=== PATIENT | female | born 1960 | race Caucasian/White ===

== ENCOUNTER 2021-05-30 15:29 | Emergency (ER) | payer BC, SELFPAY ==
[2021-05-30] VITALS (7 sets, daily range): BP systolic 109–178; BP diastolic 67–90; PULSE 58–78; RESP 16–19; TEMP 36.4–36.6; O2SAT 97–100
--- NOTE | ~2021-05-30 | XR_ITS ---
XR chest 2V DATE: 05/30/2021 21:26 INDICATION: Bilateral leg and feet swelling for 3 weeks. History of hypertension. TECHNIQUE: PA and lateral views COMPARISON: None FINDINGS: Borderline heart size. No hilar or mediastinal enlargement. No pulmonary infiltrate or consolidation, pleural effusion or pulmonary vascular congestion or pneumo thorax. Mild levoscoliosis of the thoracolumbar spine. Diffuse osteopenia. IMPRESSION: Borderline heart size; no active pulmonary disease Reviewed, dictated and finalized at location A.
--- NOTE | 2021-05-30 15:39 | ECG_ITS ---
Measurements Intervals [place] Rate: 76 P: 12 AR: 148 QRS: -56 QRSD: 99 T: 82 QT: 399 QTc: 450 Interpretive Statements SINUS RHYTHM LOW QRS VOLTAGE IN PRECORDIAL LEADS LEFT ANTERIOR FASCICULAR BLOCK BORDERLINE ST-T WAVE ABNORMALITY- HIGH LATERAL LEADS ABNORMAL ECG Electronically Signed On 05-30-2021 19:55:25 CDT by Perez Enciso D.O.
[2021-05-30 16:02] LABS: Basophils Absolute Auto 0.1 K/mm3 (0.0-0.1); Basophils Percent Auto 0.9 % (0.2-1.2); Eosinophils Absolute Auto 0.1 K/mm3 (0-0.3); Eosinophils Percent Auto 1.2 % (0-4.4); Hematocrit 40.1 % (37.0-47.0); Hemoglobin 13.2 g/dL (12.0-15.0); Immature Granulocyte Absolute 0.03 K/mm3 (0.00-0.031); Immature Granulocyte Percent A 0.5 % (0-0.5); Lymphocytes Absolute Auto 2.42 K/mm3 (0.9-3.2); Lymphocytes Percent Auto 41.8 % (18.3-44.2); Mean Corpuscular HGB Conc 32.9 g/dl (32-36); Mean Corpuscular Hemoglobin 31.4 pg (26-34); Mean Corpuscular Volume 95.5 fl (80-100); Mean Platelet Volume 10.6 fl (7.4-10.4); Monocytes Absolute Auto 0.3 K/mm3 (0.1-0.6); Monocytes Percent Auto 4.5 % (2.6-8.5); Neutrophils Percent Auto 51.1 % (45.5-73.1); Platelet Count Result 199 k/mm3 (150-375); Red Cell Distribution Width 14.8 % (11.5-14.5); White Blood Count 5.8 K/mm3 (4.5-10.0)
[2021-05-30 16:27] LABS: Alanine Aminotransferase 40 U/L (4-35); Albumin Level 4.3 g/dL (3.5-5.1); Alkaline Phosphatase 50 U/L (38-126); Anion Gap 8 mmol/L (8-16); Aspartate Amino Transferase 77 U/L (14-36); Bilirubin,Total 0.5 mg/dL (0.2-1.3); Blood Urea Nitrogen 15 mg/dL (7-17); Calcium 9.3 mg/dL (8.4-10.2); Carbon Dioxide 24 mmol/L (22-30); Chloride 105 mmol/L (98-107); Estimated CRCL calculation 59 ml/min; Estimated Glomerular Filt Rate 56; Glucose 155 mg/dL (65-110); Potassium 3.8 mmol/L (3.4-5.0); Sodium 137 mmol/L (137-145)
[2021-05-30 16:35] LABS: NT Pro B Type Natriuretic Pept 27 pg/mL (5-100)
[2021-05-30 20:59] LABS: Add Urine Microscopic? NO; Appearance Urine Clear (Clear); Bilirubin Urine Negative (Negative); Blood Urine Negative (Negative); Color Urine Yellow (Yellow); Glucose Urine UA Negative (Negative); Ketones Urine Negative (Negative); Leukocyte Esterase Ur Negative LEU/UL (Negative); Nitrate Urine Negative (Negative); Protein Urine Negative (Negative); Specific Grav Ur 1.019 (1.001-1.035); Urobilinogen Urine Negative mg/dL (<2.0)
--- NOTE | 2021-05-30 21:59 | ED.GENADULT ---
HPI - General Adult General Chief complaint: Unspecified Stated complaint: leg swelling, CHF? Time Seen by Provider: 05/30/21 20:24 Source: patient and RN notes reviewed Mode of arrival: ambulatory Limitations: no limitations History of Present Illness HPI narrative: This is a 60 year old female with history of hypertension, hypothyroidism who presents for evaluation of swelling. PAtient reports both her legs have been swollen for 2 week. She reports her swelling is constant. She also reports her hands are swollen and painful in the morning. She has been on lasix with leg swelling in the past but she ran out of her lasix 1 month ago. She reports lasix helped with her swelling. She denies history of CHF. She denies chest pain, orthopnea, shortness of breath , leg pain. She reports history of hypothyroid but her doctor has checked that and made adjustment. Related Data Allergies Allergy/AdvReac Type Severity Reaction Status Date / Time No Known Allergies Allergy Verified 05/30/21 22:08 Review of Systems Review of Systems: All systems reviewed & are unremarkable except as noted in HPI and below PMFSH Past Medical History Medical History (Updated 05/31/21 @ 00:00 by Latonia Paul) Hypertension Hypothyroid Surgical History Surgical History (Updated 05/30/21 @ 22:04 by Roula Sharp MD) H/O thyroidectomy Social History Social History (Updated 05/30/21 @ 22:04 by Roula Sharp MD) Smoking status: Never smoker Exam Narrative: GENERAL: Well-appearing, well-nourished, and in no acute distress. HEAD: Normocephalic, atraumatic EYES: PERRLA and EOMI, conjunctiva clear without discharge THROAT:Mucous membranes moist, Oropharynx normal without erythema, exudate, peritonsillar swelling or fluctuance NECK: Supple, without lymphadenopathy or mass RESPIRATORY: No respiratory distress, Airway patent, Respirations non-labored, Clear to auscultation without rales, rhonchi or wheeze HEART: Regular rate and rhythm. No murmur heard. Normal peripheral pulses. ABDOMEN: Soft, nontender, nondistended, normal active bowel sounds. No masses. No rebound or guarding, No organomegaly. EXTREMITIES: normal strength with full range of motion.no calf tenderness, bilateral ankle swelling, nonpitting SKIN: Warm, dry, normal color without rash NEURO: Alert and oriented x3. CN 2-12 grossly intact. No focal deficits. PSYCH: Normal mood and affect. Course Reevaluation(s) Reevaluation #1: I discussed with patient that labs are unremarkable. THis is unlikely to be DVT. Likely related to obesity and venous insufficiency. She will follow up with PCP . I will place on some lasix. Date: 05/30/21 Time: 22:04 Vital Signs Vital signs: Vital Signs Temperature 97.6 F 05/30/21 15:36 Pulse Rate 78 05/30/21 15:36 Respiratory Rate 16 05/30/21 15:36 Blood Pressure 146/86 H 05/30/21 15:36 Pulse Oximetry 100 05/30/21 15:36 Temperature 98 F 05/30/21 20:02 Pulse Rate 60 05/30/21 23:20 Respiratory Rate 19 05/30/21 23:20 Blood Pressure 149/75 H 05/30/21 23:20 Pulse Oximetry 98 05/30/21 23:20 Medical Decision Making Vital Signs Vital Signs: Vital Signs Temperature 97.6 F 05/30/21 15:36 Pulse Rate 78 05/30/21 15:36 Respiratory Rate 16 05/30/21 15:36 Blood Pressure 146/86 H 05/30/21 15:36 Pulse Oximetry 100 05/30/21 15:36 Temperature 98 F 05/30/21 20:02 Pulse Rate 60 05/30/21 23:20 Respiratory Rate 19 05/30/21 23:20 Blood Pressure 149/75 H 05/30/21 23:20 Pulse Oximetry 98 05/30/21 23:20 Lab Data Lab results reviewed: Yes I reviewed the patient's lab results. Result diagrams: 05/30/21 15:54 05/30/21 15:54 Labs: Lab Results 05/30/21 05/30/21 05/30/21 Range/Units 15:54 15:54 15:54 WBC 5.8 (4.5-10.0) K/mm3 RBC 4.20 (4.2-5.4) M/mm3 Hgb 13.2 (12.0-15.0) g/dL Hct 40.1 (37.0-47.0) % MCV 95.5 (8
[2021-05-31 00:24] LABS: Thyroid Stimulating Hormone Reflex > 100.000 uIU/mL (0.465-4.68)
[2021-05-31 00:51] LABS: Free T4 Free Thyroxine Reflex < 0.07 ng/dL (0.78-2.19)
== END 2021-05-30 23:22 | disposition home or self-care (01) ==
PROVIDERS: Emergency Medicine; Emergency Provider General Practice
DX: R60.0 Localized edema (principal); I10 Essential (primary) hypertension; E89.0 Postprocedural hypothyroidism; I44.4 Left anterior fascicular block
CPT/HCPCS: 36415; 71046; 80053; 81003; 83880; 84439; 84443; 85025; 93005; 99283

== ENCOUNTER 2022-08-07 14:41 | Emergency (ER) | payer OTHER, SELFPAY ==
--- NOTE | ~2022-08-07 | CT_ITS ---
EXAMINATION: CT hand RT wo con DATE: 08/07/2022 17:57 INDICATION: Right hand pain and swelling TECHNIQUE: Computed tomography (CT) of the right hand was performed without intravenous contrast. The dose-length product (DLP) was 563.85 mGy-cm. Automated exposure control and iterative reconstruction technique were employed. COMPARISON: None FINDINGS: Bone alignment is normal. There is no acute fracture. Heterotopic ossification is again see n near the ulnar styloid which could reflect a nonunited avulsion. There are moderate osteoarthritis of multiple interphalangeal joints as well as at the triscaphe joint. There is moderate soft tissue s welling of the dorsum of the hand overlying the metacarpals. IMPRESSION: 1. Moderate dorsal soft tissue swelling of the hand overlying the metacarpals without underlying osse ous abnormality. Reviewed, dictated and finalized at location A. IMPRESSION: 1. Moderate dorsal soft tissue swelling of the hand overlying the metacarpals w ithout underlying osseous abnormality.
--- NOTE | ~2022-08-07 | XR_ITS ---
EXAMINATION: XR hand RT min 3V DATE: 08/07/2022 16:12 INDICATION: /Hematoma at the dorsal aspect of the right hand. TECHNIQUE: Posteroanterior, oblique and lateral views of the right hand were obtained. COMPARISON: None. FINDINGS: Alignment is normal. No acute fracture. Small corticated ossicle at the ulnar side of the wrist joint which could represent either degenerative loose osteochondral body, chronic nonunited ulnar styloid avulsion fracture fragment or heterotopic ossicle related to chronic soft tissue injury. Polyarticula r osteoarthritis, moderate at the triscaphe and second and third distal interphalangeal joints and mi ld at the first carpometacarpal, second and fifth metacarpophalangeal and remaining interphalangeal j oints. Moderate soft tissue swelling over the dorsum of the hand. IMPRESSION: 1. 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 No acute osseous abnormality. Reviewed, dictated and finalized at location A. IMPRESSION: 1. 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 No acute os seous abnormality.
[2022-08-07 14:42] VITALS: BP 179/94; PULSE 81; RESP 18; TEMP 36.1; O2SAT 97
--- NOTE | 2022-08-07 16:03 | ED.GENADULT ---
HPI - General Adult General Chief complaint: Extremity Injury, Upper Stated complaint: right hand injury Time Seen by Provider: 08/07/22 15:54 History of Present Illness HPI narrative: 61-year-old female here for evaluation of right hand pain and swelling for the past several hours. No known trauma, first noticed the swelling while she was at work. She does use her hands quite frequently at work and believes she may have hit it on something. Swelling has increased in size and she states the pain is like a stinging burning sensation which prompted her ED evaluation. She has full range of motion in her fingers. Has not taken any medication for pain. Is not on any blood thinner medications. Related Data Allergies Allergy/AdvReac Type Severity Reaction Status Date / Time No Known Allergies Allergy Verified 08/07/22 17:17 Review of Systems Review of Systems: Gen: Denies fevers or chills Eyes: Denies eye pain or visual change ENT: Denies congestion Respiratory: Denies shortness of breath or cough CV: Denies chest pain or palpitations GI: Denies abdominal pain nausea, emesis or diarrhea denies burning, urgency, frequency or hematuria Musculoskeletal: Reports right hand pain and swelling. Neuro: Denies numbness, tingling, weakness or focal weakness Skin: Reports bruise to right hand Except as documented, all other systems reviewed and negative PMFSH Past Medical History Medical History Hypertension Hypothyroid Surgical History Surgical History H/O thyroidectomy Social History Social History (Updated 05/30/21 @ 22:04 by Roula Sharp MD) Smoking status: Never smoker Exam Narrative: APPEARANCE: Well appearing, no pain in distress, well-nourished. Head: Normocephalic and atraumatic. EYES: PERRLA/EOMI, conjunctivae clear NOSE: No nasal drainage EARS: External ear normal in appearance THROAT: Oropharynx is clear. Mucous membranes are moist. NECK: Supple. No adenopathy, no masses. RESPIRATORY: Airway patent, respirations nonlabored. Clear to auscultation bilaterally, no rales, rhonchi, wheezing. CARDIOVASCULAR: Brisk capillary refill in fingers. Regular rate and rhythm without murmurs, rubs, or gallops. ABDOMINAL: Normoactive bowel sounds. Soft, nontender, nondistended. No rebound tenderness or guarding. MUSCULOSKELETAL: Patient has a large hematoma to the dorsal aspect of the right hand, tender to palpation, full range of motion of the fingers and wrist. Compartments are soft. NEURO: Normal speech. No focal neurologic deficits. PSYCHIATRIC: Normal affect/mood. Course Vital Signs Vital signs: Vital Signs Temperature 97.0 F L 08/07/22 14:42 Pulse Rate 81 08/07/22 14:42 Respiratory Rate 18 08/07/22 14:42 Blood Pressure 179/94 H 08/07/22 14:42 Pulse Oximetry 97 08/07/22 14:42 Oxygen Delivery Room Air 08/07/22 14:42 Temperature 97.0 F L 08/07/22 14:42 Pulse Rate 81 08/07/22 14:42 Respiratory Rate 18 08/07/22 14:42 Blood Pressure 179/94 H 08/07/22 14:42 Pulse Oximetry 97 08/07/22 14:42 Oxygen Delivery Room Air 08/07/22 14:42 Medical Decision Making [facility] Narrative Medical decision making narrative: 61-year-old female here for evaluation of what appears to be a large hematoma to the dorsal aspect of her right wrist that is atraumatic in nature. She is nontoxic-appearing, has no systemic symptoms. Full range of motion in hands and wrist; compartments are soft. X-ray just shows moderate amount of soft tissue swelling but no acute fracture. Given high clinical suspicion obtained a CT of the wrist which was also negative for acute fracture, did not show any deep space fluid collections. Her basic labs including coags are normal. Likely hematoma, patient will be discharged home with Altaf wrap compression and encouraged supportive measures. Discuss
[2022-08-07 16:54] LABS: Basophils Percent Auto 0.6 % (0.2-1.2); Eosinophils Absolute Auto 0.1 K/mm3 (0-0.3); Eosinophils Percent Auto 1.1 % (0-4.4); Hematocrit 43.3 % (37.0-47.0); Hemoglobin 13.8 g/dL (12.0-15.0); Immature Granulocyte Absolute 0.02 K/mm3 (0.00-0.031); Immature Granulocyte Percent A 0.3 % (0-0.5); Lymphocytes Absolute Auto 2.53 K/mm3 (0.9-3.2); Lymphocytes Percent Auto 38.3 % (18.3-44.2); Mean Corpuscular HGB Conc 31.9 g/dl (32-36); Mean Corpuscular Hemoglobin 30.2 pg (26-34); Mean Corpuscular Volume 94.7 fl (80-100); Mean Platelet Volume 10.5 fl (7.4-10.4); Monocytes Absolute Auto 0.4 K/mm3 (0.1-0.6); Monocytes Percent Auto 5.5 % (2.6-8.5); Neutrophils Absolute Auto 3.6 K/mm3 (1.3-6.7); Neutrophils Percent Auto 54.2 % (45.5-73.1); Platelet Count Result 211 k/mm3 (150-375); Red Blood Count 4.57 M/mm3 (4.2-5.4); White Blood Count 6.6 K/mm3 (4.5-10.0)
[2022-08-07 17:04] LABS: INR 0.9
[2022-08-07 17:05] LABS: Partial Thromboplastin Time 29.4 SECONDS (22.3-36.8)
[2022-08-07 17:08] LABS: Alanine Aminotransferase 20 U/L (6-35); Albumin Level 4.5 g/dL (3.5-5.1); Alkaline Phosphatase 90 U/L (38-126); Anion Gap 7 mmol/L (8-16); Aspartate Amino Transferase 39 U/L (14-36); Bilirubin,Total 0.4 mg/dL (0.2-1.3); Blood Urea Nitrogen 18 mg/dL (7-17); Calcium 8.8 mg/dL (8.4-10.2); Carbon Dioxide 28 mmol/L (22-30); Chloride 102 mmol/L (98-107); Estimated CRCL calculation 57 ml/min; Estimated Glomerular Filt Rate 56; Glucose 119 mg/dL (65-110); Potassium 3.7 mmol/L (3.4-5.0); Sodium 137 mmol/L (137-145)
[2022-08-07] MEDS: IBUPROFEN 600 MG TABLET PO (17:20)
== END 2022-08-07 18:34 | disposition home or self-care (01) ==
PROVIDERS: Physician Assistant; Emergency Provider Emergency Medicine
DX: M79.81 Nontraumatic hematoma of soft tissue (principal); I10 Essential (primary) hypertension; E89.0 Postprocedural hypothyroidism
CPT/HCPCS: 36415; 73130; 73200; 80053; 85025; 85610; 85730; 99284; A9270

== ENCOUNTER 2023-06-21 15:34 | Emergency (ER) | payer BC, SELFPAY ==
[2023-06-21 16:59] VITALS: BP 141/93; PULSE 70; RESP 16; TEMP 35.8; O2SAT 98
--- NOTE | 2023-06-21 18:14 | ED.SKABFB ---
HPI - Skin/Abscess/Foreign Bdy General Chief complaint: Skin/Abscess/Foreign Body Stated complaint: Left and Right Leg Pain/Cellulitis Time Seen by Provider: 06/21/23 18:05 Source: patient and RN notes reviewed Mode of arrival: ambulatory Limitations: no limitations History of Present Illness HPI narrative: Patient presents today complaining of bilateral lower leg swelling and redness x2 days. She does have history of cellulitis in the same areas. Pain increases when she walks due to the swelling and tightness in her legs. Denies history of diabetes. States she works at [employer] and is on her feet for 9 hours at a time. Reports that if she props her legs up at home the swelling does decrease. Related Data Home Medications Medication Instructions Recorded Confirmed albuterol sulfate 90 mcg/actuation 2 puff inhalation Q4-5M PRN sob 06/21/23 06/21/23 aerosol inhaler atorvastatin 40 mg tablet 40 mg PO HS 06/21/23 06/21/23 levothyroxine 200 mcg tablet 200 mcg PO DAILY 06/21/23 06/21/23 levothyroxine 25 mcg tablet 25 mcg PO DAILY 06/21/23 06/21/23 losartan 50 mg-hydrochlorothiazide 1 tablet PO DAILY 06/21/23 06/21/23 12.5 mg tablet Allergies Allergy/AdvReac Type Severity Reaction Status Date / Time No Known Allergies Allergy Verified 06/21/23 17:27 Review of Systems Review of Systems: CONSTITUTIONAL: Denies body aches, fever, chills, or sweats. EYES: Denies visual changes, redness, or discharge. ENT: Denies rhinorrhea, congestion, sore throat, or otalgia. CARDIOVASCULAR: Denies chest pain, palpitations, or edema. RESPIRATORY: Denies cough or dyspnea. GASTROINTESTINAL: Denies abdominal pain, nausea, vomiting, or diarrhea. GENITOURINARY: Denies dysuria or hematuria. SKIN: Denies rash, itching, or wounds. MUSCULOSKELETAL: + lower leg redness, swelling NEUROLOGIC: Denies headache, numbness, tingling, or weakness. PSYCH: Denies depression or anxiety. [facility] Past Medical History Medical History Hypertension Hypothyroid Surgical History Surgical History H/O thyroidectomy Social History Social History Smoking status: Never smoker Comments At time of signature, I have reviewed and agree with nursing past medical, surgical, social and family history unless otherwise noted. Please see nursing chart for further information. There is no relevant family history pertinent to the presenting complaint Exam Narrative: GENERAL: Well-appearing, well-nourished, and in no acute distress. HEAD: Normocephalic, atraumatic. EYES: EOMI. No redness or drainage. Conjunctivae normal. ENT: Mucous membranes pink and moist. NECK: Normal AROM. CHEST: No respiratory distress. EXTREMITIES: 2+ pitting lower leg and ankle edema with scattered erythema to the right lower leg and a patch of erythema to the left anterior lower leg. No tenderness to palpation. Distal sensation intact. Capillary refill normal. Posterior tibial pulses normal. SKIN: Warm, dry, no rash. Capillary refill normal. Normal skin turgor. NEURO: No focal deficits. Alert and oriented x3. Gait steady. PSYCH: Normal affect. No signs of depression or anxiety. Course Course Level of Care: Express Care Visit Vital Signs Vital signs: Vital Signs Temperature 96.5 F L 06/21/23 16:59 Pulse Rate 70 06/21/23 16:59 Respiratory Rate 16 06/21/23 16:59 Blood Pressure 141/93 H 06/21/23 16:59 Pulse Oximetry 98 06/21/23 16:59 Oxygen Delivery Room Air 06/21/23 16:59 Temperature 96.5 F L 06/21/23 16:59 Pulse Rate 70 06/21/23 16:59 Respiratory Rate 16 06/21/23 16:59 Blood Pressure 141/93 H 06/21/23 16:59 Pulse Oximetry 98 06/21/23 16:59 Oxygen Delivery Room Air 06/21/23 16:59 Reviewed. Pt has been instructed to follow up with irina
== END 2023-06-21 18:29 | disposition home or self-care (01) ==
PROVIDERS: Emergency Provider Nurse Practitioner
DX: L03.119 Cellulitis of unspecified part of limb (principal); I10 Essential (primary) hypertension; E03.9 Hypothyroidism, unspecified
CPT/HCPCS: 99213; G0463